=== PATIENT | male | born 1960 ===

== ENCOUNTER 2020-06-26 18:05 | Emergency (ER) | payer SELFPAY ==
[~2020-06-26] VITALS: Ht 177.8 cm; Wt 79.4 kg
== END 2020-06-26 21:42 | disposition left against medical advice (07) ==
LOC: ER 18:05
DX: K40.90 Unilateral inguinal hernia, without obstruction or gangrene, not specified as recurrent (principal); Z53.21 Procedure and treatment not carried out due to patient leaving prior to being seen by health care provider
CPT/HCPCS: 76857; 99283-25